=== PATIENT | male | born 1985 | race Caucasian/White ===

== ENCOUNTER 2016-08-05 07:02 | Emergency (ER) | payer BC ==
[~2016-08-05] VITALS: Ht 182.9 cm; Wt 99.8 kg
[2016-08-05 07:02] VITALS: BP 142/97
[~2016-08-05 07:02] MED LIST: AMOXICILLIN 50500 M1 PO; IBUPROFEN 800800 M1 PO; NOHOMEMEDICATIONS; NORCO 5-325 TA1 EACH PO
[2016-08-05] MEDS ORDERED: DOXYCYCLINE 10100 M1 PO (08:44)
[2016-08-05] MEDS ORDERED: ACETAMINOPHEN-1 EAC1 PO (08:44)
[2016-08-05] MEDS ORDERED: TESSALON PERLE100 MG PO (08:44)
[2016-08-05] MEDS ORDERED: PREDNISONE 20 M20 MG PO (08:46)
== END 2016-08-05 09:08 | disposition home or self-care (01) ==
LOC: ER 07:02
DX: J18.8 Other pneumonia, unspecified organism (principal); F17.210 Nicotine dependence, cigarettes, uncomplicated; F10.99 Alcohol use, unspecified with unspecified alcohol-induced disorder

== ENCOUNTER 2016-08-07 08:16 | Emergency (ER) | payer BC ==
[~2016-08-07] VITALS: Ht 182.9 cm; Wt 99.8 kg
[~2016-08-07 08:16] MED LIST changes: +ACETAMINOPHEN-1 EAC1 PO; +DOXYCYCLINE 10100 M1 PO; +PREDNISONE 20 M20 MG PO; +TESSALON PERLE100 MG PO
[2016-08-07] MEDS ORDERED: CEFDINIR300 MG PO (09:14)
[2016-08-07 09:33] VITALS: BP 115/74
== END 2016-08-07 09:33 | disposition home or self-care (01) ==
LOC: ER 08:16
DX: H65.92 Unspecified nonsuppurative otitis media, left ear (principal); F17.210 Nicotine dependence, cigarettes, uncomplicated